=== PATIENT | female | born 1950 | race Caucasian/White ===

== ENCOUNTER 2018-10-12 12:14 | Outpatient (CLI) | payer OTHER | END 2018-10-12 12:15 | disposition home or self-care (01) | LOC: BICMAMMO 12:14 | PROVIDERS: ATTEND Internal Medicine | DX: Z12.31 Encounter for screening mammogram for malignant neoplasm of breast (principal); Z80.3 Family history of malignant neoplasm of breast | CPT/HCPCS: 77063; 77067 ==

== ENCOUNTER 2019-07-28 17:36 | Inpatient (IN) | payer MEDICARE, OTHER ==
[2019-07-28 18:10] LABS: Mean Corpuscular HGB CONC 32.9 g/dL (32.0-36.0); Mean Corpuscular Hemoglobin 30.6 pg (27.0-31.0); Platelet Count 196 thou/uL (130-400); RBC Distribution Width 12.5 % (11.5-14.5); Red Blood Cell (RBC) Count 4.25 mill/uL (4.20-5.40)
[2019-07-28 18:23] LABS: Band 14 % (5-11); Lymphocytes 3 % (21-51); MDiff Complete? YES; Monocytes 8 % (0-10); Neutrophil 75 % (42-75); Platelet Morphology Comment Appears Adequate; RBC Morphology Normal
[2019-07-28] MEDS ORDERED: Ketorolac Tromethamine 30 MG/ML VIAL ONE (18:25)
--- NOTE | 2019-07-28 18:30 | RAD ---
2 views chest: 07/28/2019 COMPARISON: None HISTORY: Body aches and fever FINDINGS: Lateral examination demonstrates a dense area of pulmonary parenchymal opacity overlying th e cardiac silhouette anteriorly. When correlated with the frontal examination this appears to represent a focal area of consolidation within the right middle lobe. There may also be additional pu lmonary parenchymal opacity within the lingula. There is no pneumothorax or pleural fluid. IMPRESSION: Dense focal area of pulmonary parenchymal opacity suggest partial consolidation/collapse of the right middle lobe on the basis of infectious pneumonitis/aspiration. Possible infiltrate within the lingula as well. Follow-up imaging following treatment advised to document resolution.
[2019-07-28 18:31] LABS: ALT (SGPT) 29 U/L (8-55); AST (SGOT) 56 U/L (5-34); Albumin 3.9 g/dL (3.4-4.8); Alkaline Phosphatase 104 U/L (40-150); Anion Gap 13 mmol/L (10-20); BUN (Urea Nitrogen) 15 mg/dL (9.8-20.1); Bilirubin, Total 0.7 mg/dL (0.2-1.2); Calc. Creatinine Clearance 0 mL/min (70-130); Calcium 9.2 mg/dL (7.8-10.44); Carbon Dioxide 22 mmol/L (23-31); Chloride 103 mmol/L (98-107); Estimated GFR-MDRD 69; Globulin 3.1 g/dL (2.4-3.5); Glucose 145 mg/dL (80-115); Potassium 3.7 mmol/L (3.5-5.1); Sodium 134 mmol/L (136-145)
[2019-07-28] MEDS ORDERED: cefTRIAXone\\ROCEPHIN 2 GM VIAL ONE (18:33)
[2019-07-28] MEDS ORDERED: Azithromycin 500 MG VIAL ONE (19:28)
[2019-07-28 19:51] LABS: Bacteria/HPF None Seen HPF (None Seen); Bilirubin Negative (Negative); Blood, Urine 1+ (Negative); Clarity Clear (Clear); Glucose, Urine (Dipstick) Normal (Negative); Leukocyte Negative Leu/uL (Negative); Mucous/LPF Rare LPF (<2+); Nitrite Negative (Negative); Protein, Urine (Dipstick) 50 mg/dL (Neg-Trace); Squamous Epithelial 0-3 HPF (0-3)
[2019-07-28] MEDS ORDERED: Acetaminophen 325 MG TAB PO PRN (21:15)
[2019-07-28 21:35] VITALS: BMI 26.4
[2019-07-29] MEDS ORDERED: Acetaminophen 650 MG Suppository PR PRN (08:04)
[2019-07-29] MEDS: Enoxaparin Sodium 40 MG/0.4 ML SYRINGE SC SCH (08:18)
[2019-07-29] MEDS: Acetaminophen 325 MG TAB PO PRN ×2 (08:18→18:58)
[2019-07-29] MEDS: Azithromycin 500 MG in Sodium Chloride 0.9% 250 ML 250 ML IVPB SCH (09:09)
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
[2019-07-29] MEDS: cefTRIAXone\\ROCEPHIN 1 GM in Sodium Chloride 0.9% 100 ML IVPB SCH (17:14)
[2019-07-30 05:45] LABS: #Eosinphils 0.2 thou/uL (0.0-0.7); #Lymphocytes 1.1 thou/uL (1.20-3.40); #Monocytes 0.5 thou/uL (0.11-0.59); #Neutrophils 6.2 thou/uL (1.40-6.50); %Basophils 0.2 % (0.0-1.0); %Eosinophils 2.6 % (0.0-10.0); %Lymphocytes 13.3 % (21.0-51.0); %Monocytes 6.4 % (0.0-10.0); %Neutrophils 77.4 % (42.0-75.0); Hemoglobin 11.4 g/dL (12.0-16.0); Mean Corpuscular HGB CONC 32.7 g/dL (32.0-36.0); Mean Corpuscular Hemoglobin 30.4 pg (27.0-31.0); Mean Corpuscular Volume 93.1 fL (78.0-98.0); Mean Platelet Volume 8.3 fL (7.4-10.4); Platelet Count 206 thou/uL (130-400); RBC Distribution Width 12.4 % (11.5-14.5); Red Blood Cell (RBC) Count 3.74 mill/uL (4.20-5.40)
[2019-07-30 06:06] LABS: Anion Gap 9 mmol/L (10-20); BUN (Urea Nitrogen) 10 mg/dL (9.8-20.1); Calc. Creatinine Clearance 95 mL/min (70-130); Calcium 8.8 mg/dL (7.8-10.44); Carbon Dioxide 28 mmol/L (23-31); Chloride 107 mmol/L (98-107); Estimated GFR-MDRD 83; Glucose 96 mg/dL (80-115); Potassium 4.3 mmol/L (3.5-5.1); Sodium 140 mmol/L (136-145)
[2019-07-30] MEDS: Enoxaparin Sodium 40 MG/0.4 ML SYRINGE SC SCH (09:28)
[2019-07-30] MEDS: Azithromycin 500 MG in Sodium Chloride 0.9% 250 ML 250 ML IVPB SCH (09:29)
[2019-07-30] MEDS: Acetaminophen 325 MG TAB PO PRN ×2 (09:40→20:11)
[2019-07-30] MEDS ORDERED: Benzonatate 100 MG CAP PO SCH (11:45)
--- NOTE | 2019-07-30 13:27 | CON ---
DATE OF CONSULTATION: CONSULTING PHYSICIAN: Dr. Strong. REASON FOR CONSULTATION: Pneumonia. Following encompassed 75 minutes of time, of that time, greater than 50% spent with the patient and/or on the patient's unit in the hospital reviewing records, formulating plan, etc. HISTORY OF PRESENT ILLNESS: The patient is a 69-year-old, who was admitted to the hospital on Tuesday with complaints of fever, congestion, cough, and shortness of breath. Duration of symptoms have been 1 to 2 days prior to admission. She has been started on antibiotics and has improved significantly. She tells me that she frequently has episodes of cough, wheezing, and congestion, particularly in the fall and the spring. She has been diagnosed with severe allergies and is on immunotherapy through Dr. Gail Nath. She does not recall having pulmonary function test in the past. She has been told she has asthma since she was a child. She has been on no medications for that other than albuterol. PAST MEDICAL HISTORY: 1. Asthma. 2. Meniere disease. 3. Seasonal allergies. PAST SURGICAL HISTORY: 1. Hysterectomy. 2. Appendectomy. 3. Tendon repair. SOCIAL HISTORY: Very occasionally drinks alcohol. She is a never smoker. Does not use illicit drugs. ALLERGIES: CODEINE, LATEX, AND SULFA. MEDICATIONS: Prior to admission, 1. ProAir. 2. Some type of thyroid medication. 3. Some type of cholesterol medication. FAMILY MEDICAL HISTORY: Unremarkable for asthma. REVIEW OF SYSTEMS: Twelve-point review of systems is otherwise negative. PHYSICAL EXAMINATION: VITAL SIGNS: Temperature 97.7, pulse 77, respirations 20, O2 saturation 97% on 2 L, and blood pressure 129/67. GENERAL: The patient is sitting up in bed, is in no distress. HEENT: Pupils react. Sclerae anicteric. Oropharynx clear. NECK: No adenopathy. No JVD. LUNGS: Normal percussion. Normal excursion. No wheezing. No rhonchi. CARDIAC: S1 and S2 regular without murmur. ABDOMEN: Soft, nontender, nondistended. EXTREMITIES: No clubbing, cyanosis, or edema. NEUROLOGIC: Grossly intact throughout. LABORATORY DATA: White blood cell count was initially 21, it is now 8.0, hematocrit 34.8, and platelet count 206. Sodium 140, potassium 4.3, BUN 10, creatinine 0.7, glucose 96. IMAGING STUDIES: Chest x-ray shows a possible right middle lobe infiltrate on the lateral view, although this is very difficult for me to see. ASSESSMENT: 1. Community-acquired pneumonia. 2. History of seasonal asthmatic type symptoms. RECOMMENDATION: 1. As far as the pneumonia is concerned, the patient is being treated appropriately for community-acquired pneumonia and seems to be responding. 2. In terms of the asthma, the patient needs further workup as an outpatient when she is over her acute illness. That workup will consist of pulmonary function testing. I would go ahead and add some controller medication. We have Dulera in the hospital, so I will start that two puffs twice daily, but when she is discharged, it would be probably simpler to start her on Breo 200/25, one puff daily. 3. I believe the patient should be safe to discharge no later than tomorrow morning. She can follow up in my office in 2 to 4 weeks after discharge. Job ID: [id number]
[2019-07-30] MEDS: Benzonatate 100 MG CAP PO SCH ×2 (14:46→20:11)
--- NOTE | 2019-07-30 14:54 | PDOC.HOSPP ---
- Subjective Encounter Date: 07/30/19 Encounter Time: 09:20 Subjective: Pt seen for followup re: pneumonia. Feels better. - Objective Vital Signs & Weight: Vital Signs (12 hours) Temp Pulse Resp BP Pulse Ox 07/30/19 13:55 80 12 07/30/19 11:31 97.7 F 77 20 129/67 97 07/30/19 08:00 98.4 F 84 20 133/62 93 L Weight Weight 174 lb I&O: 07/29/19 07/30/19 07/31/19 06:59 06:59 06:59 Intake Total 840 Balance 840 Result Diagrams: 07/30/19 05:08 07/30/19 05:08 Additional Labs: Labs and MARs reviewed by il Hospitalist ROS - Review of Systems Respiratory: reports: cough, sputum. denies: dry, shortness of breath, hemoptysis, SOB with excertion, pleuritic pain, wheezing Cardiovascular: denies: chest pain, palpitations, orthopnea, paroxysmal noc. dyspnea, edema, light headedness - Medication Medications: Active Medications Generic Name Dose Route Start Last Admin Trade Name Freq PRN Reason Stop Dose Admin Acetaminophen 650 mg 07/29/19 08:04 07/30/19 09:40 Tylenol PO 650 mg Q4H PRN Administration Headache/Fever/Mild Pain (1-3) Albuterol/Ipratropium 3 ml 07/30/19 13:00 07/30/19 13:55 Duoneb NEB 3 ml [id number] KHUSHBU Administration Benzonatate 100 mg 07/30/19 15:00 07/30/19 14:46 Tessalon PO 100 mg TID KHUSHBU Administration Enoxaparin Sodium 40 mg 07/29/19 09:00 07/30/19 09:28 Lovenox SC 40 mg 0900 KHUSHBU Administration Azithromycin 500 mg/ Sodium 250 mls @ 250 mls/hr 07/29/19 09:00 07/30/19 09: 29 Chloride IVPB 250 mls 0900 KHUSHBU Administration Ceftriaxone Sodium 1 gm/ 100 mls @ 200 mls/hr 07/29/19 18:00 07/29/19 17:14 Sodium Chloride IVPB 100 mls 1800 KHUSHBU Administration - Exam General Appearance: NAD Eye: anicteric sclera ENT: moist mucosa Neck: supple Heart: RRR Respiratory: CTAB Gastrointestinal: soft, non-tender Musculoskeletal: normal tone, normal strength Psychiatric: normal affect Hosp A/P (1) Pneumonia Code(s): J18.9 - PNEUMONIA, UNSPECIFIED ORGANISM Status: Acute (2) Asthma Code(s): J45.909 - UNSPECIFIED ASTHMA, UNCOMPLICATED Status: Chronic - Plan continue antibiotics, out of bed/ambulate Will consult pulmonology re; asthma and pneumonia.
[2019-07-30] MEDS ORDERED: Atorvastatin Calcium 10 MG TAB PO SCH (15:15)
[2019-07-30] MEDS ORDERED: Levothyroxine 150 MCG TAB PO SCH (15:15)
[2019-07-30] MEDS: cefTRIAXone\\ROCEPHIN 1 GM in Sodium Chloride 0.9% 100 ML IVPB SCH (18:34)
[2019-07-30] MEDS: Mometasone/Formoterol 120 PUFF INHALER INH SCH (18:43)
[2019-07-31 05:17] LABS: #Eosinphils 0.1 thou/uL (0.0-0.7); #Lymphocytes 1.2 thou/uL (1.20-3.40); #Monocytes 0.6 thou/uL (0.11-0.59); #Neutrophils 4.4 thou/uL (1.40-6.50); %Basophils 0.4 % (0.0-1.0); %Eosinophils 1.9 % (0.0-10.0); %Lymphocytes 19.2 % (21.0-51.0); %Monocytes 8.9 % (0.0-10.0); %Neutrophils 69.5 % (42.0-75.0); Hemoglobin 10.4 g/dL (12.0-16.0); Mean Corpuscular HGB CONC 33.7 g/dL (32.0-36.0); Mean Platelet Volume 7.6 fL (7.4-10.4); Platelet Count 207 thou/uL (130-400); RBC Distribution Width 12.2 % (11.5-14.5); Red Blood Cell (RBC) Count 3.35 mill/uL (4.20-5.40); White Blood Cell (WBC) Count 6.3 thou/uL (4.8-10.8)
[2019-07-31] MEDS: Acetaminophen 325 MG TAB PO PRN (05:41)
[2019-07-31 05:43] LABS: Anion Gap 11 mmol/L (10-20); BUN (Urea Nitrogen) 7 mg/dL (9.8-20.1); Calc. Creatinine Clearance 103 mL/min (70-130); Calcium 8.7 mg/dL (7.8-10.44); Carbon Dioxide 28 mmol/L (23-31); Chloride 105 mmol/L (98-107); Estimated GFR-MDRD Greater than 90; Glucose 106 mg/dL (80-115); Potassium 3.8 mmol/L (3.5-5.1); Sodium 140 mmol/L (136-145)
[2019-07-31] MEDS ORDERED: Levothyroxine 150 MCG TAB PO SCH (06:00)
[2019-07-31] MEDS: Mometasone/Formoterol 120 PUFF INHALER INH SCH (06:29)
[2019-07-31] MEDS: Enoxaparin Sodium 40 MG/0.4 ML SYRINGE SC SCH (09:31)
[2019-07-31] MEDS: Benzonatate 100 MG CAP PO SCH (09:31)
[2019-07-31] MEDS: Azithromycin 500 MG in Sodium Chloride 0.9% 250 ML 250 ML IVPB SCH (09:31)
--- NOTE | 2019-07-31 10:09 | PRG ---
DATE OF SERVICE: 07/31/2019 SUBJECTIVE: She is awake, alert, in no distress. She wants to go home. OBJECTIVE: VITAL SIGNS: On exam, temperature 98.0, pulse 98, respirations 20, O2 saturation 92% on room air, blood pressure 124/64. HEENT: Unremarkable. NECK: No adenopathy or JVD. LUNGS: Clear without wheezing or rhonchi. CARDIAC: S1 and S2. Regular. ABDOMEN: Soft. EXTREMITIES: No edema. LABORATORY DATA: Her chem-7 is normal. CBC; white blood cell count 6.3, hematocrit 30.8, and platelet count 207. ASSESSMENT: 1. Pneumonia. 2. Asthma. PLAN: It should be okay to discharge. I would complete 7 days of antibiotics, give her access to nebulizer with nebulizer solution, and keep her on Dulera 200/5 two puffs twice daily or whatever insurance will cover similarly. She can follow up in my office in a month. Job ID: [id number]
[2019-07-31 11:29] VITALS: BP 146/63; TEMP 97.7
[2019-07-31] MEDS ORDERED: Atorvastatin Calcium 10 MG TAB PO SCH (21:00)
--- NOTE | 2019-08-01 01:25 | DIS ---
DATE OF ADMISSION: 07/28/2019 DATE OF DISCHARGE: 07/31/2019 PRIMARY CARE PROVIDER: Fred Echevarria MD DISCHARGE DIAGNOSES: 1. Sepsis. 2. Community-acquired pneumonia. 3. Hyponatremia. CONDITION OF PATIENT ON THE DAY OF DISCHARGE: Stable. I assessed Ms. York on the day of discharge. She denies any chest pain or shortness of breath. Vital signs are stable. S1 and S2 are heard, regular. Lungs are clear to auscultation bilaterally. CONSULTATIONS DURING THIS HOSPITALIZATION: Pulmonary and Critical Care Medicine, Dr. Dhruv Shrestha. FOLLOWUP APPOINTMENTS: The patient is advised to follow up with primary care provider in 3 to 5 days time and with Pulmonary and Critical Care Medicine Service in 3 to 4 weeks time. DISCHARGE MEDICATIONS: 1. Synthroid 150 mcg daily. 2. Zoloft 100 mg daily. 3. Zocor 20 mg daily. 4. Cefdinir 300 mg 2 times a day for 5 days. 5. Tessalon 100 mg 3 times a day as needed, 30 capsules to be dispensed. 6. DuoNeb 3 mL every 6 hours as needed, 100 doses to be dispensed. 7. Dulera 200/5 mcg inhaler 2 puffs 2 times a day, one nebulizer prescribed. HOSPITAL COURSE: Ms. York is a pleasant 69-year-old lady, who was admitted to [facility] for sepsis secondary to community-acquired pneumonia on July 28, 2019. Please refer to my history and physical note dated July 29, 2019, for further details. She improved with intravenous antibiotics. She was seen by Pulmonology Service. She is being discharged home on oral antibiotics. She also has a history of asthma. She will follow up with Dr. Shrestha as an outpatient for further workup and management including pulmonary function tests. On the day of discharge, she has normal electrolytes, normal creatinine, normal white count, normocytic anemia with hemoglobin 10.4, and normal platelet count. Many thanks for allowing me to participate in your patient's care. Please feel free to contact me with any questions or concerns. DISCHARGE DESTINATION: Home. TIME SPENT: Total amount of time spent coordinating this discharge: 20 minutes. Job ID: [id number]
== END 2019-07-31 14:25 | disposition home or self-care (01) | DRG 871 ==
LOC: ERS 17:36 → T4-B 21:08
PROVIDERS: ADMIT Internal Medicine; ATTEND Internal Medicine
DX: A41.9 Sepsis, unspecified organism (principal); J18.1 Lobar pneumonia, unspecified organism; E87.1 Hypo-osmolality and hyponatremia; J45.909 Unspecified asthma, uncomplicated; H81.09 Meniere's disease, unspecified ear; D64.9 Anemia, unspecified; Z90.49 Acquired absence of other specified parts of digestive tract; Z90.710 Acquired absence of both cervix and uterus; Z88.5 Allergy status to narcotic agent; Z88.2 Allergy status to sulfonamides; Z91.040 Latex allergy status; Z79.899 Other long term (current) drug therapy; Z79.890 Hormone replacement therapy
CPT/HCPCS: 36415; 71046; 80048; 80053; 81003; 81015; 83605; 84484; 85025; 87040; 87086; 87804; 93005; 94640; 96365; 96366; 96375; J0456; J0696; J1650; J1885; J3490; J7050; J7620

== ENCOUNTER 2019-12-07 09:03 | Outpatient (CLI) | payer MEDICARE ==
--- NOTE | 2019-12-07 09:39 | MMO ---
Bilateral MAMMO Bilat Screen [facility]. CLINICAL HISTORY: Patient is 69 years old and is seen for screening. The patient has no family history of breast cancer. The patient has no personal history of cancer. The patient has a history of needle biopsy in - benign - Pt unsure which side. TGM. VIEWS: The views performed were: bilateral craniocaudal with tomosynthesis and bilateral mediolateral oblique with tomosynthesis. FILMS COMPARED: The present examination has been compared to prior imaging studies performed at [facility] on 07/21/2015, 07/22/2016, 08/31/2017 and 10/12/2018. This study has been interpreted with the assistance of computer-aided detection. MAMMOGRAM FINDINGS: The breasts are heterogeneously dense, which could obscure a lesion on mammography. There are no suspicious masses, suspicious calcifications, or new areas of architectural distortion. IMPRESSION: THERE IS NO MAMMOGRAPHIC EVIDENCE OF MALIGNANCY. A ROUTINE FOLLOW-UP MAMMOGRAM IN 1 YEAR IS RECOMMENDED. THE RESULTS OF THIS EXAM WERE SENT TO THE PATIENT. ACR BI-RADS Category 1 - Negative MAMMOGRAPHY NOTE: 1. A negative mammogram report should not delay a biopsy if a dominant of clinically suspicious mass is present. 2. Approximately 10% to 15% of breast cancers are not detected by mammography. 3. Adenosis and dense breasts may obscure an underlying neoplasm. Reported by: GASPER BASS MD Electonically Signed: [id number]
== END 2019-12-07 09:04 | disposition home or self-care (01) ==
LOC: BICMAMMO 09:03
PROVIDERS: ATTEND Internal Medicine
DX: Z12.31 Encounter for screening mammogram for malignant neoplasm of breast (principal); Z91.89 Other specified personal risk factors, not elsewhere classified
CPT/HCPCS: 77063; 77067

== ENCOUNTER 2020-06-08 18:53 | Observation (INO) | payer MEDICARE, OTHER ==
[~2020-06-08 18:53] MED LIST: Iopamidol-370 76% 500 ML 1 ML ONE
[2020-06-08 19:31] LABS: Hemoglobin 14.2 g/dL (12.0-16.0); Mean Corpuscular HGB CONC 33.7 g/dL (32.0-36.0); Mean Corpuscular Hemoglobin 31.4 pg (27.0-31.0); Mean Corpuscular Volume 93.2 fL (78.0-98.0); Mean Platelet Volume 8.3 fL (7.4-10.4); Platelet Count 220 thou/uL (130-400); Red Blood Cell (RBC) Count 4.51 mill/uL (4.20-5.40)
[2020-06-08 19:51] LABS: ALT (SGPT) 10 U/L (8-55); AST (SGOT) 22 U/L (5-34); Albumin 4.2 g/dL (3.4-4.8); Alkaline Phosphatase 68 U/L (40-110); Anion Gap 11 mmol/L (10-20); BUN (Urea Nitrogen) 16 mg/dL (9.8-20.1); Band 2 % (5-11); Bilirubin, Total 0.3 mg/dL (0.2-1.2); Calc. Creatinine Clearance 0 mL/min (70-130); Calcium 9.2 mg/dL (7.8-10.44); Carbon Dioxide 25 mmol/L (23-31); Chloride 105 mmol/L (98-107); Eosinophils 4 % (0-10); Estimated GFR-MDRD 79; Globulin 2.8 g/dL (2.4-3.5); Glucose 90 mg/dL (80-115); Lymphocytes 19 % (21-51); MDiff Complete? YES; Monocytes 6 % (0-10); Neutrophil 48 % (42-75); Platelet Morphology Comment Appears Adequate; Polychromasia SLIGHT = 2-3 cells (100X) (0-2/hpf); Potassium 4.3 mmol/L (3.5-5.1); Reactive Lymphocytes 21 % (0-10); Sodium 137 mmol/L (136-145)
--- NOTE | 2020-06-08 20:45 | CT ---
EXAM: CTA head without and with contrast HISTORY: Intermittent right eye vision loss COMPARISON: None TECHNIQUE: Multiple contiguous axial images were obtained and a CTA of the head without and with contrast. 3-D sagittal and coronal MIP reformats were performed. FINDINGS: The brain is normal in morphology and attenuation without focal lesions or confluent areas of infarct ion. There is no evidence of hydrocephalus, intracranial hemorrhage, or extra-axial fluid collection. Right intracranial internal carotid artery: Patent without narrowing or occlusion Right anterior cerebral artery: Patent without narrowing or occlusion Right middle cerebral artery: Patent without narrowing or occlusion Left intracranial internal carotid artery: Patent without narrowing or occlusion Left anterior cerebral artery: Patent without narrowing or occlusion Left middle cerebral artery: Patent without narrowing or occlusion No aneurysmal dilatation is seen in the anterior circulation. Right vertebral artery: Patent without narrowing or occlusion Left vertebral artery: Patent without narrowing or occlusion Basilar artery: Patent without narrowing or occlusion The posterior cerebral arteries and cerebellar arteries are patent without narrowing or occlusion. No aneurysmal dilatation is seen in the posterior circulation. 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 IMPRESSION: No significant CTA abnormality of the head
[2020-06-08] MEDS ORDERED: Aspirin Chewable 81 MG TAB ONE (21:04)
--- NOTE | 2020-06-08 21:54 | PDOC.HHP ---
Hospitalist HPI - History of Present Illness intermittent loss of vision History of Present Illness: Ms. York is a 70yoF who presents for intermittent loss of vision in her right eye. She states this started yesterday at 5pm. She describes it as a white sheet came over her vision from the medial side and occluded half of her right visual field, then the whole visual field, and then her right eye went black. This lasted for 15 minutes. When her vision began to return it was "like a fireworks show" and then eventually returned to normal. Today this has happened 6 more times the longest lasting 10 minutes, other times lasting 2-3 minutes. She has had an associated headache since last Tuesday. She has been alternating Tylenol and Motrin which alleviates the headache. The headache has not been temporally associated with the vision changes. She describes the headache has aching pain behind her right eye and the first episode of pain she had on Tuesday was sharp and more intense than it has been since. No associated N/V. No dizziness. All other review of systems negative. ED physician called Dr. Romero (patient's horse riding coach or instructor) for further recommendations. He would like a stroke workup as the intermittent nature of the vision loss is uncommon for retinal detachment. PAST MEDICAL HISTORY: 1. Meniere's syndrome with shunt placed. 2. Asthma. 3. History of pneumonia. 4. Hyperlipidemia. 5. Hypothyroidism. 6. Anxiety PAST SURGICAL HISTORY: 1. Appendectomy. 2. Hysterectomy. 3. Right thumb ligament re-attachment. SOCIAL HISTORY: Patient drinks socially, every week, Patient denies drug use, Patient has no smoking history. ALLERGIES: Codeine, latex and sulfa drugs CURRENT MEDICATIONS: PHYSICAL EXAM: General Appearance: NAD, resting comfortably on stretcher. HEENT: Normocephalic/atraumatic. PERRLA, EOM intact, Visual rowell intact. No tenderness to right yazdanism. No jaw pain. She has no light sensitivity or eye pain or headache at this time. Heart: RRR, no murmur, no gallops, no rubs, normal peripheral pulses Respiratory: CTAB, no wheezes, no rales, no ronchi, normal chest expansion, no tachypnea Gastrointestinal: soft, non-distended, normal bowel sounds, no palpable masses, nontender to palpation Extremities: no cyanosis, no clubbing, no edema Psychiatric: normal affect, normal behavior, A&O x 3 Neuro: Normal facial movements and sensation. Power 5/5 in all extremities and with normal sensation. No speech abnormality. No neuro deficits on exam. INVESTIGATIONS: EKG- NSR, HR 66. First degree AV block. No ST changes. T waves normal. Labs- WCC 6, Hgb 14.2, Hct 42, Platelets 220. CMP unremarkable. CRP <0.50. ESR 10 CTA Head: No significant CTA abnormality of the head. Hospitalist Results - Labs Result Diagrams: 06/08/20 19:12 06/08/20 19:12 Lab results: WBC 6.0 thou/uL (4.8-10.8) 06/08/20 19:12 Hgb 14.2 g/dL (12.0-16.0) 06/08/20 19:12 Hct 42.0 % (36.0-47.0) 06/08/20 19:12 MCV 93.2 fL (78.0-98.0) 06/08/20 19:12 Plt Count 220 thou/uL (130-400) 06/08/20 19:12 Band Neuts % (Manual) 2 % (5-11) L 06/08/20 19:12 ESR Westergren 10 mm/hr (Less than 30) 06/08/20 19:00 Sodium 137 mmol/L (136-145) 06/08/20 19:12 Potassium 4.3 mmol/L (3.5-5.1) 06/08/20 19:12 Chloride 105 mmol/L (98-107) 06/08/20 19:12 Carbon Dioxide 25 mmol/L (23-31) 06/08/20 19:12 BUN 16 mg/dL (9.8-20.1) 06/08/20 19:12 Creatinine 0.73 mg/dL (0.6-1.1) 06/08/20 19:12 Glucose 90 mg/dL (80-115) 06/08/20 19:12 Calcium 9.2 mg/dL (7.8-10.44) 06/08/20 19:12 Total Bilirubin 0.3 mg/dL (0.2-1.2) 06/08/20 19:12 AST 22 U/L (5-34) 06/08/20 19:12 ALT 10 U/L (8-55) 06/08/20 19:12 Alkaline Phosphatase 68 U/L (40-110) 06/08/20 19:12 C-Reactive Protein Less than 0.50 mg/dL (= or < 0.5) 06/08/20 19:00 Serum Total Protein 7.0 g/dL (6.0-8.3) 06/08/20 19:12 Albumin 4.2 g/dL (3.4-4.8) 06/08/20 19:12 Hospitalist H&P A/P - Problem (1) Right-sided headache Code(s): R51 - HEADACHE Status: Acute (2) Transient visual loss, right eye Code(s): H53.121 - TRANSIENT VISUAL LOSS, RIGHT EYE Status: Acute (3) History of Meniere's disease Code(s): Z86.69 - PERSONAL HISTORY OF DIS OF THE NERVOUS SYS AND SENSE ORGANS Status: Chronic (4) Hypothyroidism Code(s): E03.9 - HYPOTHYROIDISM, UNSPECIFIED Status: Chronic (5) Anxiety Code(s): F41.9 - ANXIETY DISORDER, UNSPECIFIED Status: Chronic (6) Hyperlipidemia Code(s): E78.5 - HYPERLIPIDEMIA, UNSPECIFIED Status: Acute - Plan Plan: ESR/CRP unremarkable, therefore temporal arteritis ruled out. Patient being admitted for further TIA work-up. Echo and Brain MRI ordered. Continue Neuro checks. Patient for ophthalmologic evaluation following discharge. Monitor BP. Lipid panel with AM labs. Continue aspirin and statin. Monitor WCC, given bands. UA/UCx and CXR to assess for underlying infection. GI prophylaxis with Famotidine. DVT prophylaxis with mechanical SCDs. CODE STATUS FULL Surrogate decision maker is her Hank York. Case discussed with Dr. Mcgarry who agrees with plan as above.
[2020-06-08] MEDS ORDERED: Acetaminophen 650 MG Suppository PR PRN (23:17)
[2020-06-08] MEDS ORDERED: Acetaminophen 325 MG TAB PO PRN (23:17)
[2020-06-08 23:43] VITALS: BMI 28.5
[2020-06-09 03:01] LABS: #Eosinphils 0.2 thou/uL (0.0-0.7); #Lymphocytes 1.7 thou/uL (1.20-3.40); #Monocytes 0.5 thou/uL (0.11-0.59); #Neutrophils 3.4 thou/uL (1.40-6.50); %Basophils 0.8 % (0.0-1.0); %Eosinophils 2.7 % (0.0-10.0); %Lymphocytes 29.1 % (21.0-51.0); %Monocytes 9.3 % (0.0-10.0); %Neutrophils 58.1 % (42.0-75.0); Hemoglobin 13.1 g/dL (12.0-16.0); Mean Corpuscular HGB CONC 33.4 g/dL (32.0-36.0); Mean Corpuscular Hemoglobin 31.1 pg (27.0-31.0); Mean Corpuscular Volume 92.9 fL (78.0-98.0); Mean Platelet Volume 8.2 fL (7.4-10.4); Platelet Count 222 thou/uL (130-400); RBC Distribution Width 12.1 % (11.5-14.5); Red Blood Cell (RBC) Count 4.23 mill/uL (4.20-5.40); White Blood Cell (WBC) Count 5.8 thou/uL (4.8-10.8)
[2020-06-09 03:13] LABS: Lactic Acid 0.5 mmol/L (0.5-2.2)
[2020-06-09 03:24] LABS: Anion Gap 12 mmol/L (10-20); BUN (Urea Nitrogen) 16 mg/dL (9.8-20.1); Calc. Creatinine Clearance 95 mL/min (70-130); Carbon Dioxide 26 mmol/L (23-31); Cardiac Risk 2.6 (Less than 4.5); Chloride 106 mmol/L (98-107); Cholesterol 172 mg/dl (< 200 Desired); Estimated GFR-MDRD 78; Glucose 98 mg/dL (80-115); HDL Cholesterol 66 mg/dL (>60 Neg Risk); LDL Cholesterol, Calculated 73 mg/dL; Potassium 4.1 mmol/L (3.5-5.1); Sodium 140 mmol/L (136-145); Triglycerides 163 mg/dL (Less than 150)
[2020-06-09 06:40] LABS: Bacteria/HPF None Seen HPF (None Seen); Bilirubin Negative (Negative); Blood, Urine Negative (Negative); Clarity Clear (Clear); Glucose, Urine (Dipstick) Normal (Negative); Ketone, Urine Negative (Negative); Leukocyte 25 Leu/uL (Negative); Nitrite Negative (Negative); Protein, Urine (Dipstick) Negative (Neg-Trace); Squamous Epithelial 0-3 HPF (0-3); Urobilinogen Normal mg/dL (Less than 2)
[2020-06-09 06:44] LABS: Specific Gravity, Urine Greater than 1.060 (1.002-1.036)
[2020-06-09 06:46] LABS: Urine Culture Reflex Yes Yes
--- NOTE | 2020-06-09 08:51 | RAD ---
CHEST PA AND LATERAL 2 VIEWS: HISTORY: Vision changes, loss of vision, TIA. FINDINGS: Heart size is normal. The lungs appear clear of acute process. Mild biapical pleural thickening. N o confluent pneumonia, overt edema, or pleural effusion. IMPRESSION: No significant acute intrathoracic disease. POS: OFF
--- NOTE | 2020-06-09 08:56 | ULT ---
BILATERAL CAROTID DUPLEX ULTRASOUND INCLUDING COLOR AND SPECTRAL DOPPLER IMAGING: HISTORY: TIA, visual loss right eye. FINDINGS: Mild visual plaque in the distal CCAs and proximal right ICA and proximal left ECA. PSV right ICA 113 cm/s, EDV 27 cm/s, ICA/CCA ratio 1.2. PSV left ICA 87 cm/s, EDV 23 cm/s, ICA/CCA ratio 0.8. Vertebral flow is antegrade. IMPRESSION: No hemodynamically significant stenosis. Mild visual plaque, evidence for atherosclerotic carotid ar brea vascular disease. POS: OFF
--- NOTE | 2020-06-09 08:58 | MRI ---
EXAM: MRI Brain WO Con PROVIDED CLINICAL HISTORY: TIA COMPARISON: CTA head on 06/08/2020 FINDINGS: There are scattered punctate and patchy areas of increased FLAIR and T2-weighted signal intensity see n in the periventricular and subcortical white matter which are nonspecific but likely reflective of chronic small vessel ischemic changes. There is no evidence of restricted diffusion to suggest an acute infarction. As noted on the CTA examination of the brain, there are serpiginous vessels seen in the right posteri or fossa/right cerebellar hemisphere most compatible with an arterial venous malformation. Just anterior and superior to this region is a low T2-weighted signal intensity focus measuring 8 mm which does demonstrate blooming artifact on the gradient echo images. This is most compatible with a small focus of hemorrhage. The exact etiology is uncertain as this again appears more anterior and ju st superior to the arteriovenous malformation in the right posterior fossa. Appropriate flow voids are demonstrated the base of the brain. The septum pellucidum and third ventricle are in the midline. The ventricular system is normal in siz e, shape, and position. Mild mucosal thickening is seen in the right maxillary antrum. Minimal mucosal thickening is seen in a few right ethmoidal air cells. Remainder of the paranasal sinuses are clear. There is metallic susceptibility artifact seen lateral aspect right posterior fossa. Surgical clips w ere seen in this region at the lateral aspect of the posterior fossa with evidence of prior postoperative changes seen on CTA examination. IMPRESSION: 1. 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 2. Focus of diminished attenuation/blooming artifact within the right cerebellar hemisphere just ante rior and superior to the level of the arteriovenous malformation. This is compatible with a focus of hemorrhage; although the exact etiology for hemorrhage is uncertain. 3. Findings likely attributable to chronic small vessel ischemic changes. No acute infarction is seen . 4. Postoperative changes lateral aspect right posterior fossa better seen on CTA head.
[2020-06-09] MEDS ORDERED: Enoxaparin Sodium 40 MG/0.4 ML SYRINGE SC SCH (09:00)
[2020-06-09] MEDS ORDERED: Aspirin 81 mg Enteric Coated Tablet PO SCH (09:00)
[2020-06-09] MEDS ORDERED: Aspirin 81 mg Enteric Coated Tablet ONE (10:06)
[2020-06-09] MEDS: Famotidine 20 MG TAB PO SCH ×2 (10:07→21:48)
[2020-06-09 11:56] LABS: SARS-CoV-2 MS2 Positive; SARS-CoV-2 N Gene Negative; SARS-CoV-2 S Gene Negative; SARS-CoV-2 by NAA Not Detected (NotDetected); SARS-CoV-2 orf1ab Negative
[2020-06-09] MEDS ORDERED: Iopamidol-370 76% 500 ML 1 ML ONE (11:57)
--- NOTE | 2020-06-09 13:16 | CON ---
NEUROLOGY CONSULTATION DATE OF CONSULTATION: 06/09/2020 REASON FOR CONSULTATION: Episodes of intermittent loss of vision. HISTORY OF PRESENT ILLNESS: Ms. York is a 70-year-old female with medical history significant for Meniere disease with shunt placement, asthma, pneumonia, hyperlipidemia, hypothyroidism, anxiety, presented with episodes of intermittent loss of vision in the right eye. Per patient, the episodes started around 5 p.m. on 06/07/2020, which she describes as a white sheet came over her vision from the medial side and occluded the half of her right visual field and then she could not see anything from her right eye. The episode lasted for around 15 minutes and then vision came began to return and she also saw shiny spots in front of her eyes. This happened about 6 to 10 times and with associated headache, for which she took Motrin and Tylenol. The patient denies any focal weakness, focal paresthesias, nausea, vomiting, headache, chest pain, abdominal pain, loss of consciousness associated with the episode. She came to the emergency room for further evaluation. The emergency room physician called the patient's pharmacovigilance scientist for further evaluation, who recommended stroke workup since visual loss is uncommon for retinal detachment. REVIEW OF SYSTEMS: All 10 systems were reviewed and were negative, except the pertinent positives and negatives mentioned in the HPI. PAST MEDICAL HISTORY: Meniere disease with shunt placement, asthma, history of pneumonia, hyperlipidemia, hypothyroidism, anxiety. PAST SURGICAL HISTORY: Appendectomy, hysterectomy, right thumb ligament reattachment. SOCIAL HISTORY: The patient denies smoking, illegal drug use. Drinks socially. FAMILY HISTORY: No significant medical history. ALLERGIES: 1. CODEINE. 2. LATEX. 3. SULFA DRUGS. DATA REVIEWED: EKG- NSR, HR 66. Labs- WCC 6, Hgb 14.2, Hct 42, Platelets 220. CMP unremarkable. CRP <0.50. ESR 10 CTA Head: No significant CTA abnormality of the head. 06/08/20 19:12 Lab results: WBC 6.0 thou/uL (4.8-10.8) 06/08/20 19:12 Hgb 14.2 g/dL (12.0-16.0) 06/08/20 19:12 Hct 42.0 % (36.0-47.0) 06/08/20 19:12 MCV 93.2 fL (78.0-98.0) 06/08/20 19:12 Plt Count 220 thou/uL (130-400) 06/08/20 19:12 Band Neuts % (Manual) 2 % (5-11) L 06/08/20 19:12 ESR Westergren 10 mm/hr (Less than 30) 06/08/20 19:00 Sodium 137 mmol/L (136-145) 06/08/20 19:12 Potassium 4.3 mmol/L (3.5-5.1) 06/08/20 19:12 Chloride 105 mmol/L (98-107) 06/08/20 19:12 Carbon Dioxide 25 mmol/L (23-31) 06/08/20 19:12 BUN 16 mg/dL (9.8-20.1) 06/08/20 19:12 Creatinine 0.73 mg/dL (0.6-1.1) 06/08/20 19:12 Glucose 90 mg/dL (80-115) 06/08/20 19:12 Calcium 9.2 mg/dL (7.8-10.44) 06/08/20 19:12 Total Bilirubin 0.3 mg/dL (0.2-1.2) 06/08/20 19:12 AST 22 U/L (5-34) 06/08/20 19:12 ALT 10 U/L (8-55) 06/08/20 19:12 Alkaline Phosphatase 68 U/L (40-110) 06/08/20 19:12 C-Reactive Protein Less than 0.50 mg/dL (= or < 0.5) 06/08/20 19:00 Serum Total Protein 7.0 g/dL (6.0-8.3) 06/08/20 19:12 Albumin 4.2 g/dL (3.4-4.8) 06/08/20 19:12 PHYSICAL EXAMINATION: 136/75 78 16 GENERAL APPEARANCE: Alert and awake female, in no acute distress. HEENT: Normocephalic, atraumatic. CVS: Regular rate and rhythm. CHEST: Clear. ABDOMEN: Soft. NECK: Supple. NEUROLOGICAL EXAMINATION: Mental status: The patient is alert and oriented to person, place, and time. Recent and remote memory, intact. Fund of knowledge is appropriate. Speech is clear. Cranial nerves 2 through 12 intact. Motor, muscle tone, and bulk are normal. Strength 5/5 bilaterally. Sensory intact. Gait deferred due to the patient's safety reasons. DATA REVIEWED: I reviewed the CTA of the head and also the labs, CMP was essentially unremarkable. EKG showed normal sinus rhythm. ASSESSMENT AND PLAN: Ms. Allyssa York is consulted for episode of visual loss of the right eye, to rule out stroke. ESR and CRP are unremarkable, so temporal arteritis is ruled out. She is admitted for TIA workup. MRI brain did not reveal acute intracranial pathology; However, it does show old AVM with small hemorrhage Consider CV input. Carotid dopplers negative for hemodynamically significant stenosis. 2D echo showed no thrombus or PFO. Continue neuro checks every 4 hours. Strict control of blood pressure and blood glucose. consider statin for secondary stroke prevention. PT/OT/Speech. Continue home medications. Check FLP, TSH and HbA1C. Continue home medications. Continue medical management per primary team. The patient should follow up with Ophthalmology on discharge for further workup. We will continue to follow. Thank you for the consult. Job ID: [id number] [facility]
--- NOTE | 2020-06-09 17:08 | PDOC.HOSPP ---
- Subjective Encounter Date: 06/09/20 Encounter Time: 17:03 Subjective: Ms. York was seen today in follow-up of headache and sudden vision loss. She says she had a few episodes today. She states that the headache is better. - Objective Vital Signs & Weight: Vital Signs (12 hours) Temp Pulse Resp BP Pulse Ox 06/09/20 15:43 97.8 F 71 16 134/64 98 06/09/20 12:00 97.8 F 75 16 139/65 99 06/09/20 08:00 97.7 F 70 16 125/59 L 97 Weight Weight 187 lb 8 oz I&O: 06/08/20 06/09/20 06/10/20 06:59 06:59 06:59 Intake Total 100 Balance 100 Result Diagrams: 06/09/20 02:38 06/09/20 02:38 Hospitalist ROS - Medication Medications: Active Medications Generic Name Dose Route Start Last Admin Trade Name Freq PRN Reason Stop Dose Admin Famotidine 20 mg 06/09/20 09:00 06/09/20 10:07 Pepcid PO 20 mg BID KHUSHBU Administration Sodium Chloride 10 ml 06/08/20 21:46 06/09/20 10:08 Flush - Normal Saline IVF 10 ml PRN PRN Administration Saline Flush - Exam Eye: PERRL, anicteric sclera Heart: RRR, no murmur, no gallops, no rubs, normal peripheral pulses Respiratory: CTAB, no wheezes, no rales, no ronchi, normal chest expansion, no tachypnea Gastrointestinal: soft, non-tender, non-distended, normal bowel sounds, no palpable masses Extremities: no cyanosis, no edema Hosp A/P (1) Right-sided headache Code(s): R51 - HEADACHE Status: Acute (2) Transient visual loss, right eye Code(s): H53.121 - TRANSIENT VISUAL LOSS, RIGHT EYE Status: Acute (3) History of Meniere's disease Code(s): Z86.69 - PERSONAL HISTORY OF DIS OF THE NERVOUS SYS AND SENSE ORGANS Status: Chronic (4) Hypothyroidism Code(s): E03.9 - HYPOTHYROIDISM, UNSPECIFIED Status: Chronic - Plan * Right sided vision loss- Probable TIA- however MRI demonstrated an AVM in the cerebellar region * Neurosurgery has been consulted * Hypothyroidism- stable * Dyslipidemia- she is mostly at goal- continue Lipitor
--- NOTE | 2020-06-09 18:13 | CT ---
CTA NECK WITH CONTRAST: Technique: Axial tomograms were obtained with multiplanar reconstruction and 3D post processing. Indications: Right eye vision loss. Assess for dissection. FINDINGS: No evidence of stenosis at the origin of the arch vessels. Both common carotid arteries are patent and symmetric. Bulb regions appear unremarkable bilaterally. No significant atherosclerotic change. Both internal carotid arteries are patent and symmetric. No stenosis. No evidence of dissection. Intr acranial internal carotid arteries are patent and symmetric. Vertebral arteries are patent and symmetric. No soft tissue abnormality. There is opacification of the right maxillary sinus. Thickened gonzalez indicate a chronic mucosal proce ss. IMPRESSION: 1. Unremarkable CTA neck. 2. Opacification of the right maxillary sinus with retraction and thickened gonzalez suggesting a chroni c mucosal process. POS: AGW
[2020-06-09] MEDS ORDERED: Atorvastatin Calcium 40 MG TAB PO SCH (21:00)
--- NOTE | 2020-06-09 21:03 | CON ---
DATE OF CONSULTATION: HISTORY OF PRESENT ILLNESS: The patient is a 70-year-old female with a past medical history of Meniere disease, status post shunt placement years ago; hyperlipidemia; asthma; hypothyroid, who presented yesterday for intermittent vision loss in her right eye. The patient reports this first began on Tuesday. She describes it as initially fireworks type sensation and then a curtain being drawn and pass the medial aspect of her right eye. This covers almost all the visual field and typically lasts about 10-15 minutes. This has been occurring every few hours since initial onset. She reports initially she had a headache with initial episodes; however, she denies any headaches currently. She denies any nausea, dizziness, or any other associated symptoms. She has been evaluated with a CTA of the brain on 06/08/2020 in the emergency department, which was negative for any acute abnormality, but was notable for a right-sided cerebellar AVM. She was evaluated further with noncontrast brain MRI, which was negative for any acute infarct. There was an AVM formation again seen in the right cerebellar region and also a focus of possible blooming artifact within the right cerebellar hemorrhage just near the AVM. Neurosurgery was consulted for these findings. I saw the patient at the bedside. She is currently in no acute distress and has no complaints at this time. PAST MEDICAL HISTORY: Meniere disease with prior shunt placement, asthma, hyperlipidemia, hypothyroidism, and anxiety. PAST SURGICAL HISTORY: Appendectomy, hysterectomy, right thumb, and right-sided shunt for Meniere syndrome. SOCIAL HISTORY: She lives at home. She does not smoke, drink, or use any drugs. ALLERGIES: SHE IS ALLERGIC TO CODEINE, LATEX, AND SULFA. PHYSICAL EXAMINATION: VITAL SIGNS: Stable. CONSTITUTIONAL: Awake and alert, in no acute distress. A and O x4. HEENT: Head, normocephalic and atraumatic. Eyes, PERRLA. Extraocular movements intact. ENT, pink, intact, moist. She has normal voice. Head, normal cranial nerve exam. NECK: Nontender. Active range of motion. No meningismus or nuchal rigidity. CARDIAC: Regular rate and rhythm. PULMONARY: Symmetric chest expansion. No evidence of dyspnea. MUSCULOSKELETAL: Free active range of motion of all extremities. No focal motor weakness. NEUROLOGIC: A and O x4. Normal cranial nerve exam. No focal neurologic deficits are appreciated. ASSESSMENT AND PLAN: This is a 70-year-old female with acute right eye vision loss, who has been evaluated with CTA and MRI noncontrast, which is notable for right cerebellar arteriovenous malformation and a small area of hemorrhage around the arteriovenous malformation. There is no mass effect or midline shift. Her symptoms are quite unusual in the relationship to the arteriovenous malformation and her vision changes is unclear. She did have a CTA of the brain, however, no CTA of the neck was done. We will go ahead and add CTA imaging of the neck. She is also scheduled for an ECHO. We also appreciate any recommendations from Neurology. We will follow these images closely. Pt also would benefit from Ophthalmology evaluation in the near future. Job ID: [id number] [facility]
--- NOTE | 2020-06-10 07:25 | PDOC.HOSPP ---
- Subjective Encounter Date: 06/10/20 Encounter Time: 11:31 Subjective: Ms. York had no overnight events and reports no mental fogginess today. She was walking in the halls and had a bowel movement this morning. Patient reports that her last episode of vision loss in the right eye was at 16:30 on 06/09. Patient denies headache, blurry vision, dizziness, palpitations, nausea, vomiting, diarrhea. - Objective Vital Signs & Weight: Vital Signs (12 hours) Temp Pulse Resp BP BP Pulse Ox 06/10/20 03:48 97.6 F 63 16 116/57 L 97 06/09/20 23:40 97.6 F 74 16 122/58 L 96 06/09/20 19:55 98.9 F 66 14 133/63 99 Weight Weight 187 lb 8 oz I&O: 06/09/20 06/10/20 06/11/20 06:59 06:59 06:59 Intake Total 100 1800 Balance 100 1800 Result Diagrams: 06/09/20 02:38 06/09/20 02:38 Hospitalist ROS - Review of Systems Constitutional: denies: fever, chills Eyes: reports: vision change (last episode of vision loss in right eye on 06/09). denies: pain ENT: denies: ear pain, nose pain, nose congestion Respiratory: denies: cough, shortness of breath Cardiovascular: denies: chest pain, palpitations Gastrointestinal: denies: nausea, vomiting, abdominal pain, diarrhea, constipation Genitourinary: denies: dysuria, frequency Skin: denies: rash, lesions Neurological: denies: weakness, change in speech All other systems reviewed; all pertinent +/- noted in HPI/Subj - Medication Medications: Active Medications Generic Name Dose Route Start Last Admin Trade Name Freq PRN Reason Stop Dose Admin Famotidine 20 mg 06/09/20 09:00 06/09/20 21:48 Pepcid PO 20 mg BID KHUSHBU Administration Sodium Chloride 10 ml 06/08/20 21:46 06/09/20 10:08 Flush - Normal Saline IVF 10 ml PRN PRN Administration Saline Flush - Exam General Appearance: NAD, awake alert Eye: PERRL, anicteric sclera ENT: normocephalic atraumatic, moist mucosa Neck: supple, symmetric Heart: RRR, no murmur, no gallops, no rubs Respiratory: CTAB, no wheezes, no rales, no ronchi, normal chest expansion Gastrointestinal: soft, non-tender, non-distended Extremities: no cyanosis, no edema Skin: normal turgor, no lesions Neurological: normal sensation to touch, no weakness, no new deficit (vision intact bilaterally) Musculoskeletal: normal tone, normal strength Psychiatric: normal behavior, A&O x 3 Hosp A/P (1) Right-sided headache Code(s): R51 - HEADACHE Status: Acute (2) Transient visual loss, right eye Code(s): H53.121 - TRANSIENT VISUAL LOSS, RIGHT EYE Status: Acute (3) History of Meniere's disease Code(s): Z86.69 - PERSONAL HISTORY OF DIS OF THE NERVOUS SYS AND SENSE ORGANS Status: Chronic (4) Hypothyroidism Code(s): E03.9 - HYPOTHYROIDISM, UNSPECIFIED Status: Chronic - Plan * Right sided vision loss- Probable TIA- however MRI demonstrated an AVM in the cerebellar region * Neurosurgery has been consulted * Hypothyroidism- stable * Dyslipidemia- she is mostly at goal- continue Lipitor * * Patient seen and examined and discussed with Celso Prabhakar MS-3. She has not had any further symptoms. She has been evaluated by Neurosurgery, and there is no need for any intervention regarding to AVM, and it is not the cause of her symptoms. Her exam is unchanged. She is stable for discharge home. I recommend an outpatient event monitor to screen for occult AFIB and Ophthalmology exam.
--- NOTE | 2020-06-10 08:13 | PRG ---
DATE OF SERVICE: 06/10/2020 SUBJECTIVE: The patient is a 70-year-old woman, who was admitted after multiple episodes of unilateral vision loss. She visited with her learning technologist by telephone, who recommended presentation in the emergency room. She has not had further spells and has had no other specific symptoms. She has a history of shunt for Meniere's. MRI of the brain has revealed one and possibly two incidental right cerebellar lesions consistent most likely with cavernous malformation. My opinion, there is unlikely to be any acute hemorrhage associated with this, but perhaps some chronic hemorrhage. There is no mass effect. CTA of the head and neck is negative. An echo was performed and is pending. IMPRESSION AND PLAN: 1. Episodes of monocular vision loss. I agree with Neurology's evaluation and workup for transient ischemic attacks. There is no direct relationship between the incidentally discovered cerebellar lesion and the vision loss as best I can tell. 2. Cerebellar cavernous malformation. This does not require treatment and I recommend a followup MRI in six months. Job ID: [id number]
[2020-06-10] MEDS: Famotidine 20 MG TAB PO SCH (08:45)
[2020-06-10] MEDS ORDERED: Fluticasone Propionate Nasal Spray 16 gm Bottle NASAL SCH (09:00)
[2020-06-10] MEDS ORDERED: Levothyroxine 150 MCG TAB PO SCH (09:00)
[2020-06-10] MEDS ORDERED: Sertraline HCl PO SCH (09:00)
--- NOTE | 2020-06-10 13:50 | PDOC.HOSPP ---
- Subjective Encounter Date: 06/10/20 Subjective: NEUROLOGY PROGRESS NOTE No further episodes of loss of vision. Patient at baseline. - Objective Vital Signs & Weight: Vital Signs (12 hours) Temp Pulse Resp BP Pulse Ox 06/10/20 11:16 97.5 F L 65 16 142/60 H 98 06/10/20 07:36 97.5 F L 73 15 143/60 H 95 06/10/20 03:48 97.6 F 63 16 116/57 L 97 Weight Weight 187 lb 8 oz I&O: 06/09/20 06/10/20 06/11/20 06:59 06:59 06:59 Intake Total 100 1800 Balance 100 1800 Result Diagrams: 06/09/20 02:38 06/09/20 02:38 Radiology Reviewed by me: Yes EKG Reviewed by me: Yes Hospitalist ROS - Review of Systems Constitutional: denies: fever, chills, sweats, weakness, malaise, other Eyes: denies: pain, vision change, conjunctivae inflammation, eyelid inflammation, redness, other ENT: denies: ear pain, ear discharge, nose pain, nose discharge, nose congestion , mouth pain, mouth swelling, throat pain, throat swelling, other Respiratory: denies: cough, dry, shortness of breath, hemoptysis, SOB with excertion, pleuritic pain, sputum, wheezing, other Cardiovascular: denies: chest pain, palpitations, orthopnea, paroxysmal noc. dyspnea, edema, light headedness, other Gastrointestinal: denies: nausea, vomiting, abdominal pain, diarrhea, constipation, melena, hematochezia, other Genitourinary: denies: dysuria, frequency, incontinence, hematuria, retention, other Musculoskeletal: denies: neck pain, shoulder pain, arm pain, back pain, hand pain, leg pain, foot pain, other Skin: denies: rash, lesions, sudha, bruising, other Neurological: denies: weakness, numbness, incoordination, change in speech, confusion, seizures, other - Medication Medications: Active Medications Generic Name Dose Route Start Last Admin Trade Name Freq PRN Reason Stop Dose Admin Famotidine 20 mg 06/09/20 09:00 06/10/20 08:45 Pepcid PO 20 mg BID KHUSHBU Administration Fluticasone Propionate 0 gm 06/10/20 09:00 06/10/20 09:36 Flonase Nasal [place] NASAL Not Given DAILY KHUSHBU Atorvastatin Calcium 0 each 06/10/20 21:00 06/10/20 08:44 40 Mg Tab PO 1 each HS KHUSHBU Administration Sertraline Hcl 0 each 06/10/20 09:00 06/10/20 08:43 PO 1 each DAILY KHUSHBU Administration Levothyroxine 0 each 06/10/20 09:00 06/10/20 08:44 PO 1 each DAILY KHUSHBU Administration Sodium Chloride 10 ml 06/08/20 21:46 06/10/20 08:45 Flush - Normal Saline IVF 10 ml PRN PRN Administration Saline Flush - Exam General Appearance: awake alert Eye: PERRL ENT: normocephalic atraumatic Neck: supple Heart: RRR Respiratory: CTAB Gastrointestinal: soft Extremities: no cyanosis Skin: normal turgor Neurological: cranial nerve grossly intact, normal sensation to touch, no weakness, no focal deficits, no new deficit Musculoskeletal: normal tone, normal strength, no muscle wasting Psychiatric: normal affect, normal behavior, A&O x 3, oriented to person, oriented to place, oriented to time Hosp A/P (1) TIA (transient ischemic attack) Code(s): G45.9 - TRANSIENT CEREBRAL ISCHEMIC ATTACK, UNSPECIFIED Status: Acute (2) Transient visual loss, right eye Code(s): H53.121 - TRANSIENT VISUAL LOSS, RIGHT EYE Status: Acute (3) Right-sided headache Code(s): R51 - HEADACHE Status: Acute (4) Hypothyroidism Code(s): E03.9 - HYPOTHYROIDISM, UNSPECIFIED Status: Chronic (5) Asthma Code(s): J45.909 - UNSPECIFIED ASTHMA, UNCOMPLICATED Status: Chronic - Plan 70 year old with an episode of transient loss of vision in the right eye. Most likely TIA. MRI brain reviewed and was negative for acute intracranial process. Carotid dopplers and 2 D echo unremarkable. CTA showed pold AVM. Follow up with MRI brain in 6 months per NSGY. Continue home medications. Strict control of BP and BG. Aspirin and stain for secondary stroke prevention. Continue medical management per primary team Plan discussed with the patient and during MDR rounds.
--- NOTE | 2020-06-10 15:05 | PDOC.HOSPP ---
- Subjective Encounter Date: 06/10/20 Encounter Time: 15:01 Subjective: Ms. York was seen today . She does not - Objective Vital Signs & Weight: Vital Signs (12 hours) Temp Pulse Resp BP Pulse Ox 06/10/20 11:16 97.5 F L 65 16 142/60 H 98 06/10/20 07:36 97.5 F L 73 15 143/60 H 95 06/10/20 03:48 97.6 F 63 16 116/57 L 97 Weight Weight 187 lb 8 oz I&O: 06/09/20 06/10/20 06/11/20 06:59 06:59 06:59 Intake Total 100 1800 Balance 100 1800 Result Diagrams: 06/09/20 02:38 06/09/20 02:38 Hospitalist ROS - Medication Medications: Active Medications Generic Name Dose Route Start Last Admin Trade Name Freq PRN Reason Stop Dose Admin Famotidine 20 mg 06/09/20 09:00 06/10/20 08:45 Pepcid PO 20 mg BID KHUSHBU Administration Fluticasone Propionate 0 gm 06/10/20 09:00 06/10/20 09:36 Flonase Nasal [place] NASAL Not Given DAILY KHUSHBU Atorvastatin Calcium 0 each 06/10/20 21:00 06/10/20 08:44 40 Mg Tab PO 1 each HS KHUSHBU Administration Sertraline Hcl 0 each 06/10/20 09:00 06/10/20 08:43 PO 1 each DAILY KHUSHBU Administration Levothyroxine 0 each 06/10/20 09:00 06/10/20 08:44 PO 1 each DAILY KHUSHBU Administration Sodium Chloride 10 ml 06/08/20 21:46 06/10/20 08:45 Flush - Normal Saline IVF 10 ml PRN PRN Administration Saline Flush Hosp A/P (1) Right-sided headache Code(s): R51 - HEADACHE Status: Acute (2) Transient visual loss, right eye Code(s): H53.121 - TRANSIENT VISUAL LOSS, RIGHT EYE Status: Acute (3) History of Meniere's disease Code(s): Z86.69 - PERSONAL HISTORY OF DIS OF THE NERVOUS SYS AND SENSE ORGANS Status: Chronic (4) Hypothyroidism Code(s): E03.9 - HYPOTHYROIDISM, UNSPECIFIED Status: Chronic - Plan * Right sided vision loss- Probable TIA- however MRI demonstrated an AVM in the cerebellar region * Neurosurgery has been consulted * Hypothyroidism- stable * Dyslipidemia- she is mostly at goal- continue Lipitor
[2020-06-10 15:52] VITALS: BP 126/58; TEMP 97.4
[2020-06-10] MEDS ORDERED: Mometasone 200 MCG/Formoterol 5 MCG 120 PUFF INHALER INH SCH (18:30)
[2020-06-10] MEDS ORDERED: Loteprednol Etabonate 0.5% Ophth Suspension 5 ml Bottle EA EYE SCH (21:00)
[2020-06-10] MEDS ORDERED: Atorvastatin Calcium 40 MG TAB PO SCH (21:00)
[2020-06-10] MEDS ORDERED: LOTEPREDNOL ETABONATE OP SCH (21:00)
--- NOTE | 2020-06-10 21:36 | DIS ---
DATE OF ADMISSION: 06/08/2020 DATE OF DISCHARGE: 06/10/2020 DISCHARGE DISPOSITION: Home. DISCHARGE DIAGNOSES: 1. Amaurosis fugax. 2. Dyslipidemia. 3. Atrial venous malformation in the cerebellum. 4. Hypothyroidism. 5. Depression. DISCHARGE MEDICATIONS: 1. Aspirin 81 mg p.o. daily. 2. DuoNeb q.6 as needed. 3. Mometasone/formoterol 200/5 two puffs twice a day. 4. Zoloft 100 mg daily. 5. Multivitamins, folic acid, and lutein daily. 6. B12 of 1000 mcg p.o. daily. 7. Lotemax one drop in each eye daily. 8. Claritin 10 mg daily. 9. Levothyroxine 150 mcg p.o. daily. 10. Fluticasone nasal spray at bedtime. 11. Atorvastatin 40 mg daily. 12. ProAir inhaler as needed daily. IMAGING DONE DURING THE HOSPITAL STAY: The patient had a CTA of the [place] showing no significant intracranial abnormality. The patient had a CTA of the neck, which was essentially unremarkable. The patient had bilateral carotid Dopplers, which were negative for any flow-limiting disease. The patient had an echocardiogram, in which there was no evidence of atrial septal defect or patent foramen ovale. The EF was estimated at 50% to 55%. The patient had an MRI of the brain showing an AV malformation in the right posterior fossa of the cerebellar hemisphere and there were some postoperative AVM in the posterior cerebellar hemisphere. CODE STATUS: Full code. ALLERGIES: TO CODEINE, LATEX, LIDOCAINE, AND SULFA. HOSPITAL COURSE: Ms. York is a pleasant 70-year-old female, who presented to the emergency room complaining of sudden vision loss in the right eye. Full details of which are outlined in the history and physical. Her symptoms were concerning for amaurosis fugax and a workup was initiated. The patient was found to have an incidental AVM in the cerebellum. For this reason, Neurosurgery was consulted. It was felt that this did not cause her symptoms and no further evaluation was needed other than a followup MRI in 6 months. The patient was instructed to consider getting an outpatient event monitor since there was no evidence of any modifiable risk factors during her hospital stay and also to get an ophthalmology evaluation in the event that this was not amaurosis fugax and could be some alternate diagnosis such as retinal detachment and all the patient's questions were answered and she was subsequently discharged home. Job ID: [id number]
== END 2020-06-10 16:32 | disposition home or self-care (01) ==
LOC: ERS 18:53 → 2SE 21:42
PROVIDERS: ADMIT Internal Medicine; ATTEND Internal Medicine
DX: G45.3 Amaurosis fugax (principal); E78.5 Hyperlipidemia, unspecified; Q27.39 Arteriovenous malformation, other site; E03.9 Hypothyroidism, unspecified; F32.9 Major depressive disorder, single episode, unspecified; R51 Headache; H81.09 Meniere's disease, unspecified ear; J45.909 Unspecified asthma, uncomplicated; F41.9 Anxiety disorder, unspecified; Z79.82 Long term (current) use of aspirin; Z79.899 Other long term (current) drug therapy; Z88.2 Allergy status to sulfonamides; Z88.5 Allergy status to narcotic agent; Z88.8 Allergy status to other drugs, medicaments and biological substances; Z91.041 Radiographic dye allergy status; Z20.828 Contact with and (suspected) exposure to other viral communicable diseases
CPT/HCPCS: 70496; 70498; 70551; 71046; 80048; 80053; 80061; 81001; 83605; 85025 ×2; 85652; 86140; 87086; 93005; 93306; 93880; 94760; 99285; U0003; 36415; 87635; 96372; G0378; J1650; Q9967

== ENCOUNTER 2021-01-27 13:35 | Outpatient (CLI) | payer MEDICARE ==
[~2021-01-27 13:35] MED LIST changes: -Iopamidol-370 76% 500 ML 1 ML ONE; +Magnevist 469MG/ML 20 ML VIAL ONE
== END 2021-01-27 13:36 | disposition home or self-care (01) ==
LOC: TBSIIMAG 13:35 → MRI 13:36
PROVIDERS: ATTEND Neurological Surgery
DX: S06.5X0A Traumatic subdural hemorrhage without loss of consciousness, initial encounter (principal); R51.9 Headache, unspecified
CPT/HCPCS: 70553; 82565; A9579

== ENCOUNTER 2021-03-20 08:03 | Outpatient (CLI) | payer MEDICARE | END 2021-03-20 08:04 | disposition home or self-care (01) | LOC: BICMAMMO 08:03 | PROVIDERS: ATTEND Internal Medicine | DX: Z12.31 Encounter for screening mammogram for malignant neoplasm of breast (principal); Z91.89 Other specified personal risk factors, not elsewhere classified | CPT/HCPCS: 77063; 77067 ==

== ENCOUNTER 2022-04-22 09:23 | Outpatient (CLI) | payer MEDICARE | END 2022-04-22 09:24 | disposition home or self-care (01) | LOC: BICMAMMO 09:23 | PROVIDERS: ATTEND Internal Medicine | DX: Z12.31 Encounter for screening mammogram for malignant neoplasm of breast (principal); Z91.89 Other specified personal risk factors, not elsewhere classified | CPT/HCPCS: 77063; 77067 ==

== ENCOUNTER 2024-09-17 13:39 | Outpatient (CLI) | payer MEDICARE | END 2024-09-17 13:40 | disposition home or self-care (01) | LOC: RAD 13:39 | PROVIDERS: ATTEND Internal Medicine Advanced Heart Failure and Transplant Cardiology | DX: R06.00 Dyspnea, unspecified (principal) | CPT/HCPCS: 71046 ==

== ENCOUNTER 2025-07-01 10:50 | Day surgery (SDC) | payer MEDICARE ==
[2025-06-28 11:10] VITALS: BMI 27.3
[2025-07-01] MEDS ORDERED: Lidocaine 1% w/Epinephrine 1:100K 20 ML VIAL ONE (10:57)
== END 2025-07-01 13:35 | disposition home or self-care (01) ==
LOC: SDC 10:50
PROVIDERS: ATTEND Internal Medicine Cardiovascular Disease
PROC: 0JPT02Z Removal of Monitoring Device from Trunk Subcutaneous Tissue and Fascia, Open Approach (ICD-10-PCS; principal; 2025-07-01)
DX: Z45.09 Encounter for adjustment and management of other cardiac device (principal); G45.3 Amaurosis fugax; G45.9 Transient cerebral ischemic attack, unspecified; I10 Essential (primary) hypertension; E78.5 Hyperlipidemia, unspecified; E03.9 Hypothyroidism, unspecified; F32.A Depression, unspecified; Z86.73 Personal history of transient ischemic attack (TIA), and cerebral infarction without residual deficits; Z98.51 Tubal ligation status; Z98.49 Cataract extraction status, unspecified eye; Z90.710 Acquired absence of both cervix and uterus; Z90.49 Acquired absence of other specified parts of digestive tract; Z91.040 Latex allergy status; Z88.5 Allergy status to narcotic agent; Z88.2 Allergy status to sulfonamides; Z88.4 Allergy status to anesthetic agent; Z79.890 Hormone replacement therapy; Z79.899 Other long term (current) drug therapy
CPT/HCPCS: 33286

== ENCOUNTER 2025-07-12 08:25 | Outpatient (CLI) | payer MEDICARE | END 2025-07-12 08:26 | disposition home or self-care (01) | LOC: BICMAMMO 08:25 | PROVIDERS: ATTEND Nurse Practitioner Family | DX: Z12.31 Encounter for screening mammogram for malignant neoplasm of breast (principal); Z80.3 Family history of malignant neoplasm of breast; Z91.89 Other specified personal risk factors, not elsewhere classified | CPT/HCPCS: 77063; 77067 ==

== ENCOUNTER 2025-07-12 08:59 | Outpatient (CLI) | payer MEDICARE | END 2025-07-12 09:00 | disposition home or self-care (01) | LOC: RAD 08:59 | PROVIDERS: ATTEND Internal Medicine | DX: R06.00 Dyspnea, unspecified (principal) | CPT/HCPCS: 71046 ==